=== PATIENT | female | born 1995 | race Caucasian/White ===

== ENCOUNTER 2017-12-09 19:48 | Observation (INO) ==
[2017-12-09] MEDS ORDERED: Ampicillin/Sulbactam 3,000 MG in D5% in Water (Mini-Bag+) 100 ML IVPB ONE (20:49)
[2017-12-09] MEDS ORDERED: 0.9 % Sodium Chloride 1,000 ML IVC ONE (20:49)
[2017-12-09] MEDS ORDERED: Vancomycin 1,000 MG VIAL IVPB ONE (20:49)
[2017-12-09] MEDS ORDERED: Acetaminophen 325 MG TABLET PO ONE (20:49)
[2017-12-09] MEDS ORDERED: *HR* LORazepam 1 MG TABLET PO ONE (20:53)
--- NOTE | 2017-12-09 20:54 | Emergency Department Note ---
Disposition Clinical Impression: Abscess Incisional abscess Qualifiers: Encounter type: initial encounter Qualified Code(s): T81.4XXA - Infection following a procedure, initial encounter Disposition: Admitted As Inpatient Condition: Good Referrals: NONE,PCP [Primary Care Provider] - Forms: ED Satisfaction Letter Time of Disposition: 20:40 Skin/Abscess/FB HPI Chief complaint: ED Wound/Laceration Stated complaint: abcess on upper arm Source: patient Limitations: no limitations Nursing Notes Reviewed: Yes Vital Signs Reviewed: Yes HPI Narrative: Patient is a pleasant 22-year-old female with no significant PMH who is presenting to [facility] Emergency Room with a chief complaint off left arm abscess and cellulitis which has been progressive in the past few days. Patient was seen at the urgent care and failed oral medications. Patient thinks that it was related to insect bites. The rash is almost in her entire arm. The swelling is about kiwi size and started draining. She also noticed inflamed lymph nodes in her arm pit. Patient denies any fever, chills or night sweats. Pt also denies any eye pain or visual disturbances. There is no sore throat, nasal drainages or facial congestion. There is no chest pain, palpitations or racing heart. Pt also denies any shortness of breath, cough or chest congestion. There is no abdominal pain, nausea, vomiting or diarrhea. There is no urgency, frequency or dysuria. There is no other muskulo-skeletal pain, arthralgia or back pain. There is no neurological manifestations, no headache, no vertigo or weakness. The patient also denies any anxiety, depression, hallucinations and has no homicidal or suicidal ideations. There is no polyuria, polydipsia or recent weight change. There is no easy bruising or bleeding. Review of other systems is otherwise negative except above. Pt Subjective Complaint: insect bite/sting, abscess/boil Onset (ago): day(s) Home Medications Medication Instructions Recorded Confirmed No Known Home Drugs 02/18/16 02/18/16 Allergies Allergy/AdvReac Type Severity Reaction Status Date / Time No Known Allergies Allergy Verified 02/18/16 21:46 All systems ED: reviewed and negative except as stated. Review of Systems: As Per HPI Constitutional: Denies: fever, chills, weakness Eyes: Denies: eye pain, eye discharge, vision change ENT ED: Denies: ear pain, throat pain, dental pain Cardiovascular: Denies: chest pain, palpitations, dyspnea on exertion Respiratory: Denies: cough, dyspnea, wheezes Gastrointestinal: Denies: abdominal pain, nausea, vomiting Genitourinary: Denies: urgency, dysuria, frequency Musculoskeletal: Denies: back pain, neck pain, joint swelling Integumentary: Reports: rash, lesions, pruritus Neurological: Denies: headache, weakness, numbness Psychiatric: Denies: anxiety, depression, suicidal thoughts Endocrine: Denies: fatigue, heat or cold intolerance Past Medical History - Past Medical History Medical history: Reports: no medical history Psychiatric history: Reports: no psych history NEUROSURGERY RESEARCH DIRECTOR history: Reports: no NEUROSURGERY RESEARCH DIRECTOR history - Social History Smoking Status: Current every day smoker Smokeless Tobacco Status: No Alcohol use: Reports: none Drug use: Reports: opiates, IV Drug Use Physical Exam - General Limitations: no limitations General appearance: alert - Head Head exam: atraumatic, normocephalic, normal inspection - Eye Eye exam: Present: normal appearance, PERRL, EOMI - Expanded Eye Exam Pupils: Left: reactive - ENT ENT exam: normal exam, normal oropharynx, mucous membranes moist - Expanded ENT Exam External ear exam: Present: normal external inspection Mouth exam: Present: normal external inspection Teeth exam: Present: normal inspection Throat exam: Present: normal inspection - Neck Neck exam: Present: normal inspection, full ROM, trachea midline - Chest Chest inspection: Present: normal inspection, symmetric chest wall rise - Respiratory Respiratory exam: Present: normal lung sounds bilaterally - Cardiovascular Cardiovascular exam: Present: regular rate, normal rhythm, normal heart sounds - Abdominal Exam Abdominal exam: Present: soft, Non-Tender. Absent: tenderness, distention, guarding, rebound, rigidity - Extremities Exam Extremities exam: Present: normal inspection, full ROM. Absent: tenderness, pedal edema - Expanded Upper Extremity Exam Shoulder exam: Present: normal inspection, full ROM Arm exam: Present: normal inspection, full ROM, tenderness, swelling, erythema, other (an abscess about smaller than kiwi and rash extendes inner entire arm 18 x 16 cm +LAD) Elbow exam: Present: normal inspection, full ROM Forearm/Wrist exam: Present: normal inspection, full ROM Hand exam: Present: normal inspection, full ROM Vascular exam: Normal: capillary refill, radial pulse - Expanded Lower Extremity Exam Hip/Pelvis exam: Present: normal inspection, full ROM Upper leg exam: Present: normal inspection, full ROM Knee exam: Present: normal inspection, full ROM Lower leg exam: Present: normal inspection, full ROM Ankle exam: Present: normal inspection, full ROM Foot/toe exam: Present: normal inspection, full ROM Neurovascular/Tendon exam: Absent: motor deficit, sensory deficit, tendon deficit - Back Exam Back exam: Present: normal inspection, full ROM. Absent: tenderness - Neurological Exam Neurological exam: Present: alert, oriented X3 - Expanded Neurological Exam Patient oriented to: Present: person, place, time Coma Scale Eye Opening: Spontaneous Coma Scale Motor Response: Obeys Commands Coma Scale Verbal Response: Oriented Coma Scale Total: 15 - Psychiatric Psychiatric exam: Present: normal affect, normal mood - Skin Skin exam: Present: warm, dry, intact, normal color Course Vital Signs Temperature 98.6 F 12/09/17 19:49 Pulse Rate 130 12/09/17 19:49 Respiratory Rate 18 12/09/17 19:49 Blood Pressure 141/88 12/09/17 19:49 O2 Sat by Pulse Oximetry 99 12/09/17 19:49 Temperature 98.6 F 12/09/17 19:49 Pulse Rate 130 12/09/17 19:49 Respiratory Rate 18 12/09/17 19:49 Blood Pressure 141/88 12/09/17 19:49 O2 Sat by Pulse Oximetry 99 12/09/17 19:49 Oxygen Delivery Oxygen Delivery Room Air Procedures - Abscess I/D Consent obtained: verbal consent Site: upper extremity Side (if applicable): left Local Anesthetic: lidocaine 1% Amount of Anesthesia Used (mL): 6 Technique: incised with #11 blade Amount of fluid: 3 Irrigation: Yes Packing used?: iodoform Skin/Abscess/Foreign Body - Differential Diagnosis Likely: abscess of skin or subcutaneous tissue - Medical Records Medical records reviewed: Yes I reviewed the patient's medical records. - Lab Data Lab results reviewed: Yes I reviewed the patient's lab results. Result diagrams: 12/09/17 21:23 Lab Results 12/09/17 Range/Units 21:23 WBC 11.3 H (4.3-11.1) K/mcL RBC 4.64 (3.82-4.97) M/mcL Hgb 10.9 L (11.5-15.4) g/dL Hct 33.2 L (35.3-44.9) % MCV 71.6 L (83.0-100.0) fL MCH 23.5 L (28.0-33.3) pg MCHC 32.8 (31.6-35.5) g/dL RDW 17.7 H (11.5-14.5) % Plt Count 263 (140-400) K/mcL MPV 11.5 (9.4-12.4) fL Immature Gran % 0.3 (0-4) % Seg Neutrophils % 61.0 % Lymphocytes % 32.3 % Monocytes % 6.2 % Eosinophils % 0.1 % Basophils % 0.1 % Neutrophils # 6.9 (1.6-8.9) K/mcL Lymphocytes # 3.7 (0.6-4.6) K/mcL Monocytes # 0.7 (0.0-1.3) K/mcL Eosinophils # 0.0 (0.0-0.6) K/mcL Basophils # 0.0 (0.0-0.2) K/mcL - Radiology Data Radiology results reviewed: Yes I reviewed the patient's radiology results.
[2017-12-09] MEDS ORDERED: 0.9 % Sodium Chloride 250 ML ONE ×2 (21:41→23:42)
[2017-12-09 21:45] LABS: Basophils % 0.1 %; Eosinophils % 0.1 %; Hematocrit 33.2 % (35.3-44.9); Hemoglobin 10.9 g/dL (11.5-15.4); Immature Granulocytes % 0.3 % (0-4); Lymphocytes # 3.7 K/mcL (0.6-4.6); Lymphocytes % 32.3 %; Mean Corpuscular HGB Conc 32.8 g/dL (31.6-35.5); Mean Corpuscular Hemoglobin 23.5 pg (28.0-33.3); Mean Corpuscular Volume 71.6 fL (83.0-100.0); Mean Platelet Volume 11.5 fL (9.4-12.4); Monocytes # 0.7 K/mcL (0.0-1.3); Monocytes % 6.2 %; Neutrophils # 6.9 K/mcL (1.6-8.9); Platelet Count 263 K/mcL (140-400); Red Blood Count 4.64 M/mcL (3.82-4.97); Red Cell Distribution Width 17.7 % (11.5-14.5)
[2017-12-09] MEDS ORDERED: Naloxone 0.4 MG/ML INJ IVP PRN ×2 (22:00→23:42)
[2017-12-09] MEDS ORDERED: 0.9 % Sodium Chloride 1,000 ML IVC SCH (22:00)
[2017-12-09 22:04] LABS: BUN/Creatinine Ratio 13 (6-26); Blood Urea Nitrogen 9 mg/dL (6-20); Calcium 9.7 mg/dL (8.6-10.3); Carbon Dioxide 23 mEq/L (23-29); Chloride 98 mEq/L (98-107); Glucose 90 mg/dL (70-105); Osmolality,Calculated 270 (280-300); Potassium 4.7 mEq/L (3.5-5.1); Sodium 131 mEq/L (136-145); eGFR For African Americans > 60 (> 60); eGFR For Non-African Americans > 60 (> 60)
[2017-12-09] MEDS ORDERED: Lidocaine -MPF 2% 5 ML VIAL ONE ×2 (22:41→23:42)
[2017-12-09] MEDS: 0.9 % Sodium Chloride 1,000 ML IVC SCH (23:50)
[2017-12-10] MEDS ORDERED: Vancomycin 1,000 MG VIAL ONE (00:04)
[2017-12-10] MEDS: 0.9 % Sodium Chloride 1,000 ML IVC SCH (04:57)
--- NOTE | 2017-12-10 10:28 | Internal Med History&Physical ---
Date of Encounter: 12/10/17 Time of Encounter: 10:05 Assessment and Plan (1) Abscess Current visit: Yes Status: Acute She was given IV Unasyn and vancomycin in emergency room. She is adamant she be discharged home and continue oral antibiotics. (2) Anemia Current visit: Yes Status: Acute Suspect iron deficiency. I told her she should follow with a PCP and have further evaluation and treatment. Qualifiers: Anemia type: unspecified type Qualified Code(s): D64.9 - Anemia, unspecified Internal Medicine - H&P: HPI Chief complaint: Left arm abscess Admitted From: Emergency Dept Plans for Post Hospital Care: Home History of present illness: Ms. Smith is a 22 year old female who came to emergency room stating she had developed infection in her left arm following scratching a "bug bite" she sustained approximately 3-4 days earlier. She had been to local urgent care on December 08 and received oral antibiotics and an antibiotic injection. When she was unimproved on December 09 she returned to the urgent care and was directed to emergency room. She was found to have a left upper arm abscess which was incised and drained in emergency room. She was admitted to [facility] floor for IV antibiotics and ongoing care needs. She states the pain and redness have lessened since admission. She also has less axillary adenopathy. She states her last IV drug use was approximate 4 months ago. She denies recreational drug use at present time. She has other mosquito bites which she has scratched without significant infection developing. Past Med Surg Social Fam HX - Past Medical History Medical history: other Additional medical history: Drug abuse inclusing IVDU Psychiatric history: anxiety - Past Surgical History Surgical History: no surgical history - Social History Smoking Status: Current every day smoker Packs per day: 0.5 Smokeless Tobacco Status: No Alcohol use: none Drug use: none Internal Medicine - H&P: Meds No Known Home Drugs 02/18/16 [History] 3 Allergy/AdvReac Type Severity Reaction Status Date / Time No Known Allergies Allergy Verified 02/18/16 21:46 All Systems PM: A 10-system review of systems was performed and is negative for pertinent findings except as documented above in the HPI. Review of systems: Gen.: She states her weight has been stable the past few months Cardiovascular: She denies hypertension UT heart failure heart murmurs angina DVT or pulmonary embolus Respiratory: She has smoked since age 17. She denies chronic lung disease GI: She denies disorders of her liver gallbladder or exocrine pancreas : She denies hematuria dysuria or kidney stones Neurologic: She denies syncope migraine strokes or seizures Endocrine: She denies diabetes thyroid disease or hyperlipidemia Hematology/oncology: She was unaware she had anemia on labs in emergency room. She denies known blood disorders or cancers Psychiatric: She feels anxious at times but does not take medication. She denies other mental health issues Musko skeletal: She denies arthritis gout or other bone joint or muscle disorders. - Constitutional Vitals: Temp Pulse Resp BP Pulse Ox 98.4 F 105 14 115/69 98 12/10/17 06:43 12/10/17 06:43 12/10/17 06:43 12/10/17 06:43 12/10/17 06:43 Exam: Gen.: She is a well-developed well-nourished female resting comfortably in bed who appears in no acute distress at present time HEENT: Head is atraumatic and normal cephalic. Eyes: EOMI. There is no scleral icterus. Mouth: Mucosa is moist. Neck: Supple and nontender. There is no thyromegaly or adenopathy noted. Heart: Regular without murmurs gallops or ectopics Lungs: No wheezes or crackles are heard. Abdomen: Soft and nontender. No masses or guarding are noted. Extremities: There is no cyanosis edema or clubbing noted. Dorsalis pedis and posterior tibial pulses are 2 over 2 bilaterally. She has erythema in her left upper inner arm with a gauze dressing over the incision and drainage site. Ink line delineates borders of the erythema documented in emergency room. The erythema appears to have regressed. There is a tender left axillary lymph node which she states is smaller and less tender than last evening. Neurologic: Mental status: She is talkative and a good historian. Cranial nerves: Smile is symmetric. Forehead wrinkles bilaterally. Tongue protrudes midline. EOMI. Motor: There is no pronator drift. Cerebellar: Finger to nose is intact bilaterally. Skin: Warm and dry Internal Med - H&P Results - Labs CBC & Chem 7: 12/09/17 21:23 12/09/17 21:23 - VTE Reasons for not Prescribing Prophylaxis: Treatment not Indicated - Low risk for VTE
--- NOTE | 2017-12-10 10:54 | Discharge Summary ---
Date of Encounter: 12/10/17 Time of Encounter: 10:05 - Discharge Diagnosis (1) Abscess Priority: Primary Status: Acute (2) Anemia Priority: Secondary Status: Acute Qualifiers: Anemia type: unspecified type Qualified Code(s): D64.9 - Anemia, unspecified Hospital course: Ms. Smith is a 22 year old female who came to emergency room stating she had developed infection in her left arm following scratching a "bug bite" she sustained approximately 3-4 days earlier. She had been to local urgent care on December 08 and received oral antibiotics and an antibiotic injection. When she was unimproved on December 09 she returned to the urgent care and was directed to emergency room. She was found to have a left upper arm abscess which was incised and drained in emergency room. She was admitted to [facility] for IV antibiotics and ongoing care needs. Initial orders were written by the emergency room physician. I saw her on December 10 and performed a history and physical. She was given IV vancomycin and Unasyn in emergency room. When I saw her she stated she felt improved. There was less tender adenopathy in left axillary area. The ink outline on her upper arm showed regression of erythema. She wished to be discharged home and return for daily wound packing with iodoform as a series patient. She will continue Keflex and Bactrim as prescribed by urgent care yesterday. She will follow with a PCP within 1 week. I told her she had microcytic anemia likely due to iron deficiency. Testing was not ordered in the hospital because of her short stay. Her PCP can follow up on this. - Time Spent with Patient Total time spent providing and/or coordinating discharge services: - Discharge Medications Prescriptions: Lactobacillus [Culturelle] 1 each PO BID #14 [email or web address] Home Medications: Lactobacillus [Culturelle] 1 each PO BID #14 [email or web address] 12/10/17 [Rx] Allergies/Adverse Reactions: 3 Allergy/AdvReac Type Severity Reaction Status Date / Time No Known Allergies Allergy Verified 02/18/16 21:46 Date of admission: 12/09/17 22:38 Primary care physician: PCP NONE - Constitutional Vitals: Temp Pulse Resp BP Pulse Ox 98.4 F 105 14 115/69 98 12/10/17 06:43 12/10/17 06:43 12/10/17 06:43 12/10/17 06:43 12/10/17 06:43 - Patient Status Disposition: Home, Self-Care Condition: Good - Discharge Instructions Follow Up With: NONE,PCP [Primary Care Provider] - 1 week Additional Instructions: Return to hospital for daily wound packing until healed - Diet and Activity Activity: resume usual activities as tolerated Diet: advance to your usual diet - VTE Reasons for not Prescribing Prophylaxis: Treatment not Indicated - Low risk for VTE
[2017-12-10 11:22] VITALS: BP 105/62
[2017-12-10] MEDS ORDERED: Aminoglycoside Consult 1 EACH MC ONE (13:35)
== END 2017-12-10 13:36 | disposition home or self-care (01) ==
LOC: EMEROOPIK 19:48 → INPPIK 19:48
PROVIDERS: ADMIT Internal Medicine; ATTEND Internal Medicine

== ENCOUNTER 2020-05-22 07:44 | Observation (INO) ==
[2020-05-22] MEDS ORDERED: Nafcillin 2,000 MG in 0.9 % Sodium Chloride Mini Bag 100 ML IVPB STA (08:11)
[2020-05-22] MEDS ORDERED: 0.9 % Sodium Chloride 1,000 ML IVC ONE (08:11)
[2020-05-22 09:01] LABS: Eosinophils % 0.3 %; Hematocrit 25.2 % (35.3-44.9); Hemoglobin 7.8 g/dL (11.5-15.4); Immature Granulocytes % 0.4 % (0-4); Lymphocytes # 0.7 K/mcL (0.6-4.6); Lymphocytes % 7.1 %; Mean Corpuscular Hemoglobin 20.4 pg (28.0-33.3); Mean Platelet Volume 11.4 fL (9.4-12.4); Monocytes # 0.6 K/mcL (0.0-1.3); Monocytes % 5.9 %; Neutrophils # 8.7 K/mcL (1.6-8.9); Platelet Count 217 K/mcL (140-400); Red Blood Count 3.82 M/mcL (3.82-4.97); Segmented Neutrophils % 86.3 %; White Blood Count 10.1 K/mcL (4.3-11.1)
[2020-05-22 09:13] LABS: Alanine Aminotransferase 10 Units/L (7-52); Albumin 3.6 g/dL (3.5-5.7); Albumin/Globulin Ratio 1.2 (1.1-2.2); Alkaline Phosphatase 75 Units/L (34-104); Aspartate Amino Transferase 13 Units/L (13-39); BUN/Creatinine Ratio 13 (6-26); Bilirubin,Direct 0.1 mg/dL (0.0-0.2); Bilirubin,Indirect 0.4 mg/dL (0.0-1.0); Bilirubin,Total 0.5 mg/dL (0.3-1.0); Blood Urea Nitrogen 5 mg/dL (6-20); Calcium 8.7 mg/dL (8.6-10.3); Carbon Dioxide 23 mEq/L (23-29); Chloride 99 mEq/L (98-107); Globulin 3.1 g/dL (2.4-3.5); Glucose 87 mg/dL (70-105); Osmolality,Calculated 271 (280-300); Potassium 3.2 mEq/L (3.5-5.1); Sodium 132 mEq/L (136-145); Total Protein 6.7 g/dL (6.4-8.9); eGFR For African Americans > 60 (> 60); eGFR For Non-African Americans > 60 (> 60)
[2020-05-22 09:34] LABS: Hypochromasia Present (Not Present); Microcytosis Present (Not Present)
[2020-05-22 09:49] LABS: Bilirubin,Urine Negative (Negative); Blood,Urine Negative (Negative); Clarity,Urine Cloudy (Clear); Color,Urine Yellow (Yellow); Glucose,Urine (UA) Normal (Normal); Ketones,Urine Negative (Negative); Leukocyte Esterase,Urine Small (Negative); Nitrite,Urine Negative (Negative); Protein,Urine Negative (Neg-Trace); Urobilinogen,Urine Normal (Normal)
[2020-05-22 10:01] LABS: Bacteria,Urine Few per hpf (None-Few); Mucus,Urine Few per lpf (None-Few); Squamous Epithelial Cell,Urine Many per hpf (None-Few)
[2020-05-22 10:03] LABS: Amphetamine Screen,Urine Positive ng/mL (Cutoff=1000); Barbiturate Screen,Urine Negative ng/mL (Cutoff=200); Benzodiazepines Screen,Urine Negative ng/mL (Cutoff=200); Cannabinoid Screen,Urine Negative ng/mL (Cutoff = 50); Cocaine Screen,Urine Negative ng/mL (Cutoff= 300); Opiate Screen,Urine Negative ng/mL (Cutoff=300); Phencyclidine Screen,Urine Negative ng/mL (Cutoff=25)
[2020-05-22] MEDS ORDERED: Naloxone 0.4 MG/ML INJ IVP PRN (10:05)
[2020-05-22] MEDS ORDERED: Ondansetron 4 MG/2 ML VIAL IVP PRN (10:05)
[2020-05-22] MEDS ORDERED: 0.9 % Sodium Chloride 1,000 ML IVC SCH (10:15)
[2020-05-22 11:33] VITALS: BP 122/61
[2020-05-22] MEDS ORDERED: Nafcillin 2,000 MG in 0.9 % Sodium Chloride Mini Bag 100 ML IVPB SCH (12:00)
[2020-05-22] MEDS ORDERED: *HR* LORazepam 2 MG/ML VIAL IVP PRN (13:01)
== END 2020-05-22 16:06 | disposition short-term general hospital (02) ==
LOC: EMEROOPIK 07:44 → INPPIK 07:44
PROVIDERS: ADMIT Family Medicine; ATTEND Family Medicine